=== PATIENT | male | born 1960 | race Caucasian/White ===

== ENCOUNTER 2018-09-24 13:56 | Emergency (ER) | payer OTHER ==
[~2018-09-24] VITALS: Ht 182.9 cm; Wt 95.3 kg
[2018-09-24] MEDS ORDERED: TAMS0.4C PO (18:28)
[2018-09-24] MEDS ORDERED: KETO10TA2 PO (18:28)
== END 2018-09-24 20:18 | disposition home or self-care (01) ==
LOC: ER 13:56
DX: N20.0 Calculus of kidney (principal)